=== PATIENT | female | born 1990 | race Caucasian/White ===

== ENCOUNTER 2017-03-18 23:09 | Emergency (ER) | payer BC ==
[~2017-03-18] VITALS: Ht 157.5 cm; Wt 54.6 kg
[~2017-03-18 23:09] MED LIST: AMPH20TA2 PO; FLUD0.1T10 PO; HYDR10TA52 PO; HYDR5TAB PO; LEVO75TA5 PO; OMEP40CA PO; RANI150T3 PO
[2017-03-18 23:16] VITALS: TEMP 37; Ht 157.5 cm; Wt 54.6 kg
[2017-03-18] MEDS ORDERED: ONDANSETRON INJ 2 MG/ML 2 ML VIAL IV STA (23:24)
[2017-03-18] MEDS ORDERED: MoRPHine SULFATE 4 MG/ML 1 ML CARP\\VIAL IV STA (23:24)
[2017-03-18] MEDS ORDERED: SODIUM CHLORIDE 0.9% 1000ML 1,000 ML IV STA (23:45)
[2017-03-18 23:50] LABS: BASO % 0.2 %; BASO ABS # 0.03 K/uL (0-0.2); COMPLETE YES; EOS % 0.8 %; HEMATOCRIT 47.1 % (37-47); IG% 0.4 %; LYMPH % 18.3 %; LYMPH ABS # 2.86 K/uL (1.2-3.4); MEAN CELL VOLUME 88.2 fL (80-100); MEAN CORPUSCULAR HEMOGLOBIN 31.1 pg (25-34); MEAN CORPUSCULAR HGB CONC 35.2 g/dl (32-36); MEAN PLATELET VOLUME 9.3 fL (7.4-10.4); MONO % 9.7 %; NEUT % 70.6 %; PLATELET COUNT 320 K/uL (130-400); RED BLOOD COUNT 5.34 M/uL (4.2-5.4); WHITE BLOOD COUNT 15.62 K/uL (4.8-10.8)
[2017-03-19 00:11] LABS: BUN/CREATININE RATIO 11.5 (10-20); CALCIUM 8.9 mg/dl (8.5-10.1); CREATININE 0.72 mg/dl (0.60-1.20); POTASSIUM 4.3 mmol/L (3.5-5.1)
[2017-03-19 00:13] LABS: PREG INTERNAL NEGATIVE QC NEG CLEAR BACKGROUND; PREG INTERNAL POSITIVE QC POS CONTROL LINE
[2017-03-19] MEDS ORDERED: ZINC50TA3 PO (00:32)
[2017-03-19 00:54] VITALS: O2SAT 98
[2017-03-19] MEDS ORDERED: HYDROCORTISONE SOD SUCCINATE 100 MG/2 ML VIAL IV STA (01:09)
[2017-03-19] MEDS ORDERED: OPTIRAY 320 IV PRN (01:15)
[2017-03-19 01:59] LABS: URINE APPEARANCE CLEAR (CLEAR); URINE BILIRUBIN NEG (NEG); URINE COLOR YELLOW; URINE NITRITE NEG (NEG); URINE SPECIFIC GRAVITY 1.006 (1.000-1.030); UROBILINOGEN NEG (NEG); ZZUR CULT IF INDIC CLEAN CATCH NO
[2017-03-19 02:02] LABS: MANUAL MICROSCOPIC REQUIRED? NO; REVIEW REQ? NO
[2017-03-19] MEDS ORDERED: HYDROmorphone INJ 0.5 MG/0.5 ML SYR IV STA (02:09)
[2017-03-19] MEDS ORDERED: MAGNESIUM CITRATE 296 ML/BTL PO ONE (03:00)
--- NOTE | 2017-03-19 03:12 | EMERGENCY ROOM VISIT NOTE ---
History First contact with patient: 23:18 Chief Complaint: ABDOMINAL PAIN Stated Complaint: STOMACH PAIN, NAUSEA, TROUBLE PASSING GAS History of Present Illness The patient is a 27 year old female who presents to the Emergency Room with complaints of nausea difficulty passing gas and periumbilical pain for the past several hours. Patient had a minimal bowel movement today. She states she's not moving her bowels as normal. Patient had a cold a few days ago this has pretty much resolved now. She did take an extra dose of her Cortef today. She describes the pain as discomfort, 5 out of 10. Nothing makes it better or worse. It does not radiate. Patient denies chest pain, dyspnea, cough, congestion, sore throat, back pain, urinary symptoms, vomiting, diarrhea. Patient had a potato for dinner and did nothing to her abdominal pain. No history of bowel traction. She had a cholecystectomy last year. She has congenital adrenal hyperplasia. Review of Systems See HPI for pertinent positives & negatives. A total of 10 systems reviewed and were otherwise negative. Past Medical/Surgical History Medical Problems: (1) Congenital adrenal hyperplasia Cholecystectomy, hypothyroidism Social History Smoking Status: Never Smoker Alcohol Use: occasionally Occupation Status: [employer] student Current/Historical Medications Scheduled Amphetamine-Dextroamphetamine 20MG (Adderall 20MG), 20 MG PO DAILY Fludrocortisone Acetate (Florinef), 0.1 MG PO DAILY Hydrocortisone (Cortef), 5 MG PO AMPM Levothyroxine Sodium (Levothyroxine Sodium), 75 MCG PO DAILY Zinc (Zinc), 50 MG PO DAILY Physical Exam Vital Signs Date Time Temp Pulse Resp B/P (MAP) Pulse Ox O2 Delivery O2 Flow Rate FiO2 03/19/17 02:32 76 18 116/71 96 Room Air 03/19/17 01:51 95 18 110/62 100 Room Air 03/19/17 00:54 98 Room Air 03/19/17 00:54 72 18 96/65 99 Room Air 03/18/17 23:16 37.0 86 18 126/83 100 Room Air Physical Exam VITALS: Vitals are noted on the nurse's note and reviewed by myself. Vital signs stable. GENERAL: Pleasant female, in no acute distress, nondiaphoretic, well-developed well-nourished. SKIN: The skin was without rashes, erythema, edema, or bruising. There is no tenting of the skin. Capillary reflex less than 2 seconds. HEAD: Normocephalic atraumatic. EARS: External auditory canals clear, tympanic membranes pearly arceo without erythema or effusion bilaterally. EYES: Pupils equal round and reactive to light and accommodation. Conjunctivae without injection, sclerae without icterus. Extraocular movements intact. NOSE: Patent, turbinates without inflammation or discharge. MOUTH: Mucous membranes moist. Pharynx without erythema or exudate. Uvula midline. Airway patent. Tongue does not deviate. NECK: Supple without nuchal rigidity. No lymphadenopathy. No thyromegaly. Cervical spine is nontender. No JVD. HEART: Regular rate and rhythm without murmurs gallops or rubs. LUNGS: Clear to auscultation bilaterally without wheezes, rales or rhonchi. No dullness to percussion. No retractions or accessory muscle use. ABDOMEN: Positive bowel sounds x 4. Normal tympanic percussion. Soft, minimally tender periumbilical region, no CVA tenderness, without masses or organomegaly. Klein sign negative. No guarding or rebound tenderness. MUSCULOSKELETAL: No muscle atrophy, erythema, or edema noted. NEURO: Patient was alert and oriented to person place and time. Normal sensation to light and sharp touch. No focal neurological deficits. Medical Decision & Procedures Laboratory Results 03/18/17 23:25 Red Blood Count 5.34, Mean Corpuscular Volume 88.2, Mean Corpuscular Hemoglobin 31.1, Mean Corpuscular Hemoglobin Concent 35.2, Mean Platelet Volume 9.3, Neutrophils (%) (Auto) 70.6, Lymphocytes (%) (Auto) 18.3, Monocytes (%) (Auto) 9.7, Eosinophils (%) (Auto) 0.8, Basophils (%) (Auto) 0.2, Neutrophils # (Auto) 11.03, Lymphocytes # (Auto) 2.86, Monocytes # (Auto) 1.52, Eosinophils # (Auto) 0.12, Basophils # (Auto) 0.03 03/18/17 23:25 Test 03/18/17 23:25 03/19/17 01:45 White Blood Count 15.62 K/uL (4.8-10.8) Red Blood Count 5.34 M/uL (4.2-5.4) Hemoglobin 16.6 g/dL (12.0-16.0) Hematocrit 47.1 % (37-47) Mean Corpuscular Volume 88.2 fL (80-100) Mean Corpuscular Hemoglobin 31.1 pg (25-34) Mean Corpuscular Hemoglobin Concent 35.2 g/dl (32-36) Platelet Count 320 K/uL (130-400) Mean Platelet Volume 9.3 fL (7.4-10.4) Neutrophils (%) (Auto) 70.6 % Lymphocytes (%) (Auto) 18.3 % Monocytes (%) (Auto) 9.7 % Eosinophils (%) (Auto) 0.8 % Basophils (%) (Auto) 0.2 % Neutrophils # (Auto) 11.03 K/uL (1.4-6.5) Lymphocytes # (Auto) 2.86 K/uL (1.2-3.4) Monocytes # (Auto) 1.52 K/uL (0.11-0.59) Eosinophils # (Auto) 0.12 K/uL (0-0.5) Basophils # (Auto) 0.03 K/uL (0-0.2) RDW Standard Deviation 42.2 fL (36.4-46.3) RDW Coefficient of Variation 13.1 % (11.5-14.5) Immature Granulocyte % (Auto) 0.4 % Immature Granulocyte # (Auto) 0.06 K/uL (0.00-0.02) Anion Gap 8.0 mmol/L (3-11) Est Creatinine Clear Calc Drug Dose 94.5 ml/min Estimated GFR () 134.9 Estimated GFR (Non- 116.4 BUN/Creatinine Ratio 11.5 (10-20) Calcium Level 8.9 mg/dl (8.5-10.1) Total Bilirubin 0.8 mg/dl (0.2-1) Direct Bilirubin 0.2 mg/dl (0-0.2) Aspartate Amino Transf (AST/SGOT) 10 U/L (15-37) Alanine Aminotransferase (ALT/SGPT) 20 U/L (12-78) Alkaline Phosphatase 71 U/L (45-117) Total Protein 7.4 gm/dl (6.4-8.2) Albumin 3.9 gm/dl (3.4-5.0) Lipase 155 U/L (73-393) Human Chorionic Gonadotropin, Qual NEG (NEG) Urine Color YELLOW Urine Appearance CLEAR (CLEAR) Urine pH 7.0 (4.5-7.5) Urine Specific Porter 1.006 (1.000-1.030) Urine Protein NEG (NEG) Urine Glucose (UA) NEG (NEG) Urine Ketones NEG (NEG) Urine Occult Blood NEG (NEG) Urine Nitrite NEG (NEG) Urine Bilirubin NEG (NEG) Urine Urobilinogen NEG (NEG) Urine Leukocyte Esterase NEG (NEG) Medications Administered Medications (Trade) Dose Ordered Sig/Clovis Route Start Time Stop Time Status Last Admin Dose Admin Ondansetron HCl (Zofran Inj) 4 mg NOW STAT IV 03/18/17 23:24 03/18/17 23:26 DC 03/18/17 23:51 4 MG Morphine Sulfate (MoRPHine SULFATE INJ) 4 mg NOW STAT IV 03/18/17 23:24 03/18/17 23:26 DC 03/18/17 23:51 4 MG Sodium Chloride 1,000 ml @ 999 mls/hr Q1H1M STAT IV 03/18/17 23:45 03/19/17 00:45 DC 03/18/17 23:51 999 MLS/HR Hydrocortisone Sodium Succinate (Solu-Cortef IV) 50 mg NOW STAT IV 03/19/17 01:09 03/19/17 01:14 DC 03/19/17 01:19 50 MG Hydromorphone HCl (Dilaudid Inj) 0.5 mg NOW STAT IV 03/19/17 02:09 03/19/17 02:10 DC 03/19/17 02:28 0.5 MG ED Course Prior records/ancillary studies reviewed. Triage Nursing notes reviewed. Additional history obtained from family The patient's history was concerning for abdominal pain. Differential diagnosis: Etiologies such as appendicitis, adrenal crisis, diverticulitis, PUD, biliary pathology, UTI, pancreatitis, obstruction, mesenteric ischemia, aortic pathology , infections, inflammatory bowel disease, renal colic, as well as others were entertained. Physical examination findings: As above. ER treatment provided: Morphine, Zofran, IV fluids, steroids On reassessment the patient felt better. Diagnostics interpreted by me: The labs revealed leukocytosis. No worrisome electrolyte abnormality Imaging studies: CT ABDOMEN & PELVIS With Contrast: INDICATION: TECHNIQUE: Multiple, contiguous axial cuts of the abdomen and pelvis are obtained from the lung bases to the ischial tuberosities following the administration of IV contrast. Sagittal and coronal reformatted images are available. COMPARISON: CT abdomen/pelvis on 05/15/2008. FINDINGS: Periportal edema may be related to fluid resuscitation. Tiny hypodensity in the liver dome is too small to definitively characterize. Status post cholecystectomy with probable postcholecystectomy ductal ectasia. Increased diffuse thickening of the adrenal glands. The kidneys are normal in size and contour. No lesion or hydronephrosis. Normal appendix. Marked amount of stool noted throughout the colon from the rectum to the cecum. Mildly distended small bowel is present. The findings suggest constipation, likely with stasis of bowel contents in the small bowel. No definite bowel obstruction. IMPRESSION: Marked amount of stool noted throughout the colon and rectum. Findings are suggestive of constipation. No definite bowel obstruction or inflammation. Normal appendix. Radiologist: Ai Mullins M.D. Phone: Acute abdominal series with no free air, obstruction or pneumothorax per my interpretation Exam and history seem consistent with abdominal pain most likely from constipation. Patient took an extra dose of her steroids for being sick and this could've easily caused her mild leukocytosis. Patient's CT scan was negative for appendicitis. No bowel obstruction. She was advised take medications as directed and increase her fluid and fiber intake. She is advised follow-up family care in a few days or here in the ER sooner for abdominal pain, fevers, vomiting, worsening signs or symptoms or as needed. Patient is tolerating fluids. She ambulate out of the ER without difficulties. By the evaluation outlined above emergent etiologies such as appendicitis, diverticulitis, PUD, biliary pathology, UTI, pancreatitis, obstruction, mesenteric ischemia, aortic pathology, infections, inflammatory bowel disease, renal colic, as well as others were deemed relatively unlikely. The pt informed about the findings as listed above. All questions were answered and pleased with the treatment. Return instructions were outlined and the patient was discharged in stable condition. Outpatient prescription management: Magnesium citrate Referral: The patient was referred back to their primary care physician for follow-up in 2 to 3 days for a recheck of the current condition. case reviewed with my Attending. Medical Decision As above Medication Reconcilliation Current Medication List: was personally reviewed by me Blood Pressure Screening Patient's blood pressure: Normal blood pressure Impression Primary Impression: Constipation Departure Information Dispostion Home / Self-Care Condition GOOD Referrals Patrice Kay M.D. (PCP) Patient Instructions [facility] Problem Qualifiers Primary Impression: Constipation Constipation type: unspecified constipation type Qualified Codes: K59.00 - Constipation, unspecified
[2017-03-19 03:19] VITALS: BP 109/61; PULSE 96; O2SAT 97
--- NOTE | 2017-03-19 06:09 | DIAGNOSTIC IMAGING REPORT ---
ABDOMEN 2VIEW W/PA CHEST RTN CLINICAL HISTORY: Abdominal pain. Constipation. COMPARISON STUDY: Chest x-ray performed May 1999 FINDINGS: The erect chest reveals no evidence of free air. There is no evidence of focal pulmonary consolidation.] Erect and supine views of the abdomen reveal no abnormally dilated loops of large or small bowel. There are no transition zone to indicate bowel obstruction. There are surgical clips within the right upper quadrant consistent with a prior cholecystectomy. There is mild to moderate fecal retention. IMPRESSION: 1. Mild to moderate fecal retention 2. No evidence of bowel obstruction. No evidence of free air. Electronically signed by: Corey Cherry M.D. 03/19/2017 6:08 AM Dictated Date/Time: 03/19/2017 6:07 AM
--- NOTE | 2017-03-19 06:34 | DIAGNOSTIC IMAGING REPORT ---
CT ABD/PELVIS IV CONTRAST ONLY CLINICAL HISTORY: Abdominal pain. History of adrenal insufficiency. Nausea. Constipation. COMPARISON STUDY: 05/15/2008 TECHNIQUE: Following the IV administration of 121 mL of [id number]-320, CT scan of the abdomen and pelvis was performed from the lung bases to the proximal femurs. Images are reviewed in the axial, sagittal, and coronal planes. IV contrast was administered without complication. A dose lowering technique was utilized adhering to the principles of ALARA. CT DOSE: 260.73 mGy.cm FINDINGS: Lower chest: The heart is normal in size and configuration, without pericardial effusion. The lung bases and pleural spaces are clear. Liver: There is a 5 mm hypodensity within the right lobe of the liver immediately beneath the dome of diaphragm. This likely represents a small cyst. There is mild periportal edema, finding which is often seen in aggressive hydration. The portal vein appears patent. Gallbladder: Surgically absent Spleen: Normal in size and attenuation. Pancreas: Unremarkable. Adrenal glands: There is mild bilateral adrenal gland thickening. Kidneys: There is symmetric renal cortical enhancement. The kidneys are normal in size without hydronephrosis. Bowel: There is moderate fecal retention. There are no transition zones to indicate bowel obstruction. There is no acute diverticulitis. The appendix appears normal. Peritoneum: There is no intraperitoneal free air or abdominal ascites. Vasculature: The abdominal aorta is normal in course and caliber. Adenopathy: None. Pelvic viscera: The bladder, and pelvic viscera are unremarkable. Skeletal structures: No destructive osseous lesions are seen. IMPRESSION: 1. No evidence of bowel obstruction. No evidence of free air 2. No evidence of acute diverticulitis. No evidence of acute appendicitis 3. Fecal retention 4. Periportal edema, likely secondary to aggressive hydration 5. Diffuse adrenal gland thickening Electronically signed by: Corey Cherry M.D. 03/19/2017 6:33 AM Dictated Date/Time: 03/19/2017 6:29 AM
== END 2017-03-19 03:26 | disposition home or self-care (01) ==
LOC: C.EDB 23:10 → C.EDA 03-19 03:26
DX: K59.00 Constipation, unspecified (principal); Z90.49 Acquired absence of other specified parts of digestive tract; E25.0 Congenital adrenogenital disorders associated with enzyme deficiency; E03.9 Hypothyroidism, unspecified; Z79.52 Long term (current) use of systemic steroids

== ENCOUNTER → 2017-03-29 | Outpatient (CLI) | payer BC ==
[~2017-03-29] MED LIST changes: -HYDR10TA52 PO; -OMEP40CA PO; -RANI150T3 PO; +ZINC50TA3 PO
== END | disposition home or self-care (01) ==
LOC: C.PAPS 09:12
PROVIDERS: ATTEND Physician Assistant
DX: Z01.419 Encounter for gynecological examination (general) (routine) without abnormal findings (principal); Z11.51 Encounter for screening for human papillomavirus (HPV)

== ENCOUNTER → 2017-03-29 | Outpatient (CLI) | payer BC ==
[2017-04-03 07:06] LABS: CHLAMYDIA TRACH RNA*** NOT DETECTED (NOT DETECTED); GC (NEIS GONORRHOEAE)RNA** NOT DETECTED (NOT DETECTED); TRICHOMONAS VAGINALIS RNA** NOT DETECTED (NOT DETECTED)
== END | disposition home or self-care (01) ==
LOC: C.LABSPEC 17:32
PROVIDERS: ATTEND Physician Assistant
DX: Z01.419 Encounter for gynecological examination (general) (routine) without abnormal findings (principal)

== ENCOUNTER → 2017-04-18 | Outpatient (CLI) | payer BC | END | disposition home or self-care (01) | LOC: C.PATHSPEC 15:39 | PROVIDERS: ATTEND Obstetrics & Gynecology | DX: R87.612 Low grade squamous intraepithelial lesion on cytologic smear of cervix (LGSIL) (principal) ==